=== PATIENT | female | born 1985 | race Two or more races ===

== ENCOUNTER 2022-07-13 17:07 | Emergency (ER) | payer OTHER, MEDICAID ==
[~2022-07-13] VITALS: Ht 152.4 cm; Wt 60.4 kg
[2022-07-13 18:59] VITALS: BP 113/94
[2022-07-13] MEDS ORDERED: AMOX-277 PO (19:38)
== END 2022-07-13 19:54 | disposition home or self-care (01) ==
LOC: ER 17:07
DX: J01.00 Acute maxillary sinusitis, unspecified (principal)
CPT/HCPCS: 71046

== ENCOUNTER 2022-09-12 15:34 | Emergency (ER) | payer OTHER, MEDICAID ==
[~2022-09-12] VITALS: Ht 152.4 cm; Wt 59.3 kg
[~2022-09-12 15:34] MED LIST: AMOX-277 PO
[2022-09-12 16:07] LABS: Urine WBC None Seen /hpf (0 - 5)
[2022-09-12 16:45] LABS: Basophils # (auto) 0 10 ^3/uL (0-0.2); Basophils % (auto) 0.4 % (0.0-2.0); Eosinophils # (auto) 0 10 ^3/uL (0-0.8); Eosinophils % (auto) 0.4 % (0.0-7.0); Hematocrit 40.2 % (36.0-46.0); Hemoglobin 13.5 g/dL (12.2-16.2); Lymphocytes % (auto) 37.8 % (10.0-50.0); Mean Corpuscular Hemoglobin 28.6 pg (28.0-32.0); Mean Corpuscular Hgb Conc. 33.7 g/dL (32.0-36.0); Monocytes # (auto) 0.4 10 ^3/uL (0-1.3); Monocytes % (auto) 7.2 % (0.0-12.0); Neutrophils # (auto) 2.9 10 ^3/uL (1.6-8.6); Neutrophils % (auto) 54.2 % (37.0-80.0); Nucleated Red Blood Cells % 0.3 %; Red Blood Cells 4.73 10^6/uL (4.0-5.20); Red Cell Distribution Width 13.6 % (11.8-14.3); White Blood Cell 5.4 10^3/uL (4.4-10.8)
[2022-09-12 16:48] LABS: Albumin 4.1 g/dL (3.4-5.0); BUN/Creatinine Ratio 17.2 (10.0-20.0); Calcium 9.4 mg/dL (8.5-10.1); Potassium 3.9 mmol/L (3.5-5.1)
[2022-09-12 16:50] LABS: Bilirubin, Total 0.2 mg/dL (0.2-1.0); Total Protein 8.1 g/dL (6.4-8.2)
[2022-09-12 17:12] LABS: INR 0.92 (0.9-1.15); Partial Thromboplastin Time 25.9 sec (24.6-33.4)
[2022-09-12 17:20] LABS: Urine Bacteria NONE SEEN /hpf (None Seen); Urine Blood 3+ /uL (Negative); Urine Specific Gravity 1.015 (1.001-1.035)
[2022-09-12] MEDS ORDERED: medroxyPROGESTERone ACETATE 5 MG TAB PO ONE (17:30)
[2022-09-12] MEDS ORDERED: MEDR5TAB28 PO (17:37)
[2022-09-12 18:14] VITALS: BP 104/71
== END 2022-09-12 18:21 | disposition home or self-care (01) ==
LOC: ER 15:34
DX: N93.9 Abnormal uterine and vaginal bleeding, unspecified (principal); R10.2 Pelvic and perineal pain
CPT/HCPCS: 36415; 76856; 80053; 81001; 84702; 85025; 85610; 85730; 86850; 86900; 86901